=== PATIENT | male | born 1955 | race Caucasian/White ===

== ENCOUNTER 2025-07-09 15:24 | Emergency (ER) | payer MEDICARE ==
[~2025-07-09] VITALS: Ht 190.5 cm; Wt 81.6 kg
[2025-07-09 15:27] VITALS: BP 151/77; PULSE 80; RESP 15; TEMP 98.3
--- NOTE | 2025-07-09 15:38 | ERN ---
ED Note History of Present Illness Stated Complaint: HEMATEMESIS Chief Complaint: Hematemesis/Vomiting Blood Time Seen by MD: 15:28 Dictation: PATIENT IS A 70-YEAR-OLD MALE COMPLAINING OF HAVING VOMITING BLOOD ONSET 30 MINUTES PRIOR TO ARRIVAL. HE STATES HE HAD A RECENT EGD BY [facility] IN [facility] TWO WEEKS AGO AND WAS PLACED ON CARAFATE AND SOME OTHER MEDICATIONS WITH A HIATAL HERNIA AND GASTRITIS. HE IS HAVING NO PAIN AT THE PRESENT TIME. Allergies: Coded Allergies: No Known Drug Allergies (Unverified Allergy, Unknown, 07/09/25) Past Medical History Past Medical History: Heart Disease, Hypertension Additional Past Medical Hx: LEUKEMIA Surgical History: Other Surgical History Other: ENDOSCOPY, HEART STENT, LOOP RECORDER, RT KIDNEY SX RN Note Reviewed/Agreed w/PFSH: Yes Review of System Dictation CONSTITUTIONAL: NEGATIVE EXCEPT FOR HPI HEAD/FACE: NEGATIVE EXCEPT FOR HPI EENT: NEGATIVE EXCEPT FOR HPI RESPIRATORY: NEGATIVE EXCEPT FOR HPI GASTROINTESTINAL/ABDOMINAL: NEGATIVE EXCEPT FOR HPI HEMATEMESIS GENITOURINARY: NEGATIVE EXCEPT FOR HPI MUSCULOSKELETAL: NEGATIVE EXCEPT FOR HPI INTEGUMENTARY: NEGATIVE EXCEPT FOR HPI NEUROLOGICAL/PSYCH: NEGATIVE EXCEPT FOR HPI HEMATOLOGIC/LYMPHATIC: NEGATIVE EXCEPT FOR HPI ALL SYSTEMS NEGATIVE, EXCEPT NOTED ABOVE. 13 POINT REVIEW OF SYSTEMS ASSESSED AND ALL NEGATIVE EXCEPT FOR ABOVE. Initial Vital Sign VS Vital Signs Date Time Temp Pulse Resp B/P (MAP) Pulse Ox O2 Delivery O2 Flow Rate FiO2 07/09/25 15:27 98.2 80 15 151/77 97 Room Air 0 Physical Exam Dictation VITAL SIGNS REVIEWED GENERAL APPEARANCE: ALERT, ORIENTED X 3, NO ACUTE DISTRESS, WELL DEVELOPED, NOURISHED. HEAD AND FACE: NON-TRAUMATIC. EYES: PERRL, PINK CONJUNCTIVAS, EYELID NO TRAUMA, ANTERIOR CHAMBER WITH ARCUS SENILIS. EARS: PINNAS INTACT AND NO SIGNS OF TRAUMA OR ERYTHEMA EAR CANALS CLEAR AND NO DISCHARGE TM NO ERYTHEMA NOSE: NO DISCHARGE, NO BLEEDING. OROPHARYNX: MOUTH NORMAL, TONGUE PINK, PHARYNX CLEAR,NO ERYTHEMA, TONSILS NO EXUDATES, NO ABSCESSES NOTED, MUCOUS MEMBRANE MOIST NECK: SUPPLE, NON-TENDER, NO THYROMEGALY, NO MASSES, NO JVD, NO BRUITS BREAST:DEFERRED CHEST:NO TENDERNESS, NO CREPITUS, NO PARADOXICAL MOVEMENT, NO RETRACTIONS LUNGS:CLEAR, WELL-VENTILATED, SYMMETRIC, NO RALES, NO WHEEZING, NO RHONCHI, NO STRIDOR, GOOD BREATH SOUNDS BILATERALLY HEART: REGULAR RATE, REGULAR RHYTHM, NO MURMUR, NO GALLOPS VASCULAR: NO PERIPHERAL EDEMA, ABDOMEN: SOFT, POSITIVE BOWEL SOUNDS, NONDISTENDED, NO GUARDING, NONTENDER, NO REBOUND, NO MASSES NO HEPATOMEGALY, NO SPLENOMEGALY, NO ACUÑA'S SIGN, NO HERNIAS. RECTAL: DEFERRED GENITAL: DEFERRED NEUROLOGICAL: NORMAL SPEECH, MOTOR FUNCTION INTACT, SENSORY FUNCTION INTACT MUSCULOSKELETAL: NECK NONTENDER, FULL RANGE OF MOTION, BACK NONTENDER, FULL RANGE OF MOTION, EXTREMITIES: NONTENDER, FULL RANGE OF MOTION SKIN: COLOR PINK, DRY, NO TURGOR, NO RASH, NO LACERATIONS, NO ABRASIONS, NO CONTUSIONS. LYMPHATIC: DEFERRED Results (Laboratory/Radiology) Laboratory/Radiology Laboratory Tests Test 07/09/25 15:52 07/09/25 16:04 07/09/25 16:10 White Blood Count 79.8 K/uL (4.8-10.8) *H Red Blood Count 3.82 MIL/uL (4.50-6.20) L Hemoglobin 11.4 g/dL (14.0-18.0) L Hematocrit 37.0 % (42-54) L Mean Corpuscular Volume 96.9 fL (79-99) Mean Corpuscular Hemoglobin 29.8 pg (27.0-33.0) Mean Corpuscular Hemoglobin Concent 30.8 g/dL (32.0-36.0) L Red Cell Distribution Width 13.8 % (11.0-15.5) Platelet Count 209 K/uL (130-400) Mean Platelet Volume 10.3 fL (7.5-10.5) Immature Granulocyte % (Auto) 0.1 % (0-1) Neutrophils (%) (Auto) 3.4 % (40.0-77.0) L Lymphocytes (%) (Auto) 95.7 % (21.0-51.0) H Monocytes (%) (Auto) 0.5 % (3.0-13.0) L Eosinophils (%) (Auto) 0.3 % (0.0-8.0) Basophils (%) (Auto) 0.0 % (0.0-5.0) Neutrophils # (Auto) 2.7 K/uL (1.8-7.7) Lymphocytes # (Auto) 76.4 K/uL (1.0-4.8) H Monocytes # (Auto) 0.4 K/uL (0.1-1.0) Eosinophils # (Auto) 0.20 K/uL (0.00-0.70) Basophils # (Auto) 0.03 K/uL (0.00-0.20) Absolute Immature Granulocyte (auto 0.07 K/uL (0-1) Nucleated Red Blood Cells 0.0 % (0.0-0.19) Prothrombin Time 10.5 SEC (9.6-11.6) Prothromb Time International Ratio 0.99 (0.85-1.15) Activated Partial Thromboplast Time 27.6 SEC (26.3-35.5) Sodium Level 144 mmol/L (136-145) Potassium Level 3.7 mmol/L (3.5-5.1) Chloride Level 108 mmol/L (101-111) Carbon Dioxide Level 30 mmol/L (21-32) Blood Urea Nitrogen 18 mg/dL (7-18) Creatinine 1.0 mg/dL (0.5-1.3) Glomerular Filtration Rate Calc 80 mL/min (>90) Random Glucose 119 mg/dL (70-105) H Total Calcium 8.5 mg/dL (8.5-10.1) Troponin I High Sensitivity 7 ng/L (4-75) Urine Color YELLOW (YELLOW) Urine Appearance CLEAR (CLEAR) Urine pH 5.5 (5.0-8.0) Urine Specific [place] 1.028 (1.001-1.031) Urine Protein NEGATIVE mg/dL (NEGATIVE) Urine Glucose (UA) NEGATIVE mg/dL (NEGATIVE) Urine Ketones NEGATIVE mg/dL (NEGATIVE) Urine Occult Blood +- (TRACE) (NEGATIVE) H Urine Nitrate NEGATIVE (NEGATIVE) Urine Bilirubin NEGATIVE mg/dL (NEGATIVE) Urine Urobilinogen 0.2 mg/dL (0.2-1.0) Urine Leukocyte Esterase NEGATIVE Amna/uL Urine RBC 11-25 /HPF (0-1) H Urine WBC 2-5 /HPF (0-1) H Urine Bacteria RARE /HPF (None Seen) Urine Hyaline Casts 0-1 /LPF (0-1 /LPF) Stool Occult Blood NEGATIVE (NEGATIVE) Labs Reviewed?: Yes EKG: (+) NSR EKG Comment: EKG NORMAL SINUS RHYTHM/HEART RATE 75/AXIS NORMAL/NO ECTOPY ED Course ED Course Orders Procedure Category Date Status Time Pt And Ptt LAB 07/09/25 Complete 15:34 Cbc With Differential LAB 07/09/25 In Process 15:34 Troponin I High LAB 07/09/25 Complete Sensitivity 15:34 Urinalysis Profile LAB 07/09/25 Complete 15:34 Occult Blood Stool LAB 07/09/25 Complete Single Only 15:34 12 Lead Ekg Tracing- EKG 07/09/25 Logged Technical 15:34 Famotidine 20mg Vial PHA 07/09/25 Complete (Pepcid 20mg Vial) 16:00 Basic Metabolic Panel LAB 07/09/25 Complete 15:34 Octreotide Acetate PHA 07/09/25 Complete (Sandostatin) 16:30 Octreotide Acetate PHA 07/09/25 In Process (Sandostatin) 16:30 Type And Screen BBK 07/09/25 Logged 16:10 Manual Differential LAB 07/09/25 In Process 15:52 Current Medications Medications (Trade) Dose Ordered Sig/Christie Route PRN Reason Start Time Stop Time Status Last Admin Dose Admin Famotidine (Pepcid 20mg Vial) 20 mg ONCE ONCE IV 07/09/25 16:00 07/09/25 16:01 DC Octreotide Acetate 1250 mcg/ Sodium Chloride 250 ml @ 0 mls/hr PROTOCOL IV 07/09/25 16:30 08/08/25 16:29 Octreotide Acetate (SandoSTATIN) 50 mcg ONCE ONCE IV 07/09/25 16:30 07/09/25 16:31 DC Vital Signs Date Time Temp Pulse Resp B/P (MAP) Pulse Ox O2 Delivery O2 Flow Rate FiO2 07/09/25 15:27 98.2 80 15 151/77 97 Room Air 0 1610/PATIENT ACTIVELY VOMITING AT THIS TIME WITH FOUZIA HEMATEMESIS AND CLOTS. WE WILL INITIATE SANDOSTATIN DRIP WITH BOLUS. ZOFRAN WE WILL BE GIVEN FOR VOMITING., TYPE AND SCREEN WE WILL BE COLLECTED AND PATIENT WILL BE ADMITTED TO THE HOSPITAL.1644/ 1644/APPROACH PATIENT IN HIS AT BEDSIDE REGARDING IT BEING ADMITTED TO THE HOSPITAL FOR ACUTE HEMATEMESIS. SANDOSTATIN HAS NOT BEEN INITIATED. PATIENT STATES I FEEL BETTER I THINK IT IS PAST ME NOW AND I WANT TO GO HOME. I EXPLAINED TO PATIENT HE CAME IN WITH FOUZIA HEMATEMESIS AND THAT I WOULD BE ADMITTING THE HOSPITALIST HE SIGNED OUT AGAINST MEDICAL ADVICE. HE STATES HE FELT BETTER AFTER VOMITING. STATES HIS PRIMARY CARE DOCTOR IS IN [facility]. HE AND HIS AGREE THEY WOULD GO HOME IN THEY WE WILL RETURN IF I HAVE ANY NEW COMPLAINTS OR CONCERNS. PATIENT IS ALERT AND ORIENTED X4 SPEECH IS CLEAR. 1645/PATIENT ALSO STATES HE HAS CLL AND HAS A AN ONCOLOGIST AT [facility]. Medical Decision Making MDM MDM: DIFFERENTIAL DIAGNOSIS: UPPER GI BLEED/ANEMIA/ELECTROLYTE IMBALANCE PATIENT IS SIGNED OUT AGAINST MEDICAL ADVICE RATIONALE: TESTS CONSIDERED AND ORDERED SECONDARY TO SHARED DECISION MAKING INCLUDE: PREVIOUS OUTSIDE RECORDS REVIEWED: OLD ER VISITS. RISK OF COMPLICATION AND/OR MORBIDITY OR MORTALITY OF PATIENT MANAGEMENT: NONE MEDICATIONS-PER MEDICATION RECONCILIATION NEED FOR HOSPITALIZATION: PATIENT DOES NOT MEET CRITERIA FOR HOSPITALIZATION. SIGNED OUT AGAINST MEDICAL ADVICE NEED FOR EMERGENCY MAJOR/MINOR SURGERY: NO THERE ARE NO SOCIAL CONCERNS WITH THIS PATIENT. PATIENT IS SIGNED OUT AGAINST MEDICAL ADVICE PRESCRIPTION DRUG MANAGEMENT PRESCRIPTIONS WILL INCLUDE SYMPTOMATIC CARE PATIENT'S PRIOR EXTERNAL MEDICAL RECORDS FROM OTHER ER VISITS WERE REVIEWED BY ME INDICATED. PRIOR TESTING AND RESULTS FROM PREVIOUS VISITS WERE REVIEWED. PRIOR TESTS WERE TAKEN INTO ACCOUNT WITH MEDICAL DECISION MAKING AND RESOURCE UTILIZATION, INDEPENDENT HISTORIAN/HISTORIANS WERE USED TO OBTAIN COMPLETE MEDICAL HISTORY. I INDEPENDENTLY INTERPRETED THE TEST THAT WERE PERFORMED, RESULTS WERE REVIEWED BY ME AND CONSIDERED FINDINGS ON RADIOLOGY IF ORDERED. MEDICAL MANAGEMENT AND EXAMINATION INTERPRETATION DISCUSSIONS WERE HAD BY ME WITH OTHER QUALIFIED HEALTHCARE PROFESSIONALS INDICATED FOR THE PATIENT'S CARE. DX & DISP Disposition: AMA Departure Impression: Primary Impression: Hematemesis Additional Impressions: Leukocytosis, Chronic lymphocytic leukemia Condition: Stable Referrals: SELF,REFERRAL (PCP) Time of Disposition: 16:51 I have reviewed the case, and I agree with, Diagnosis and Plan LILA ZHOU BURR PICKER Jul 09, 2025 15:38
[2025-07-09 16:04] LABS: IMMATURE GRANULOCYTE ABSOLUTE 0.07 K/uL (0-1); NUCLEATED RED BLOOD CELLS 0.0 % (0.0-0.19); PLATELET COUNT (AUTO) 209 K/uL (130-400); RED BLOOD CELL COUNT(AUTO) 3.82 MIL/uL (4.50-6.20); RED CELL DISTRIBUTION WIDTH 13.8 % (11.0-15.5)
[2025-07-09 16:10] LABS: WHITE BLOOD COUNT (AUTO) 79.8 K/uL (4.8-10.8)
[2025-07-09 16:13] LABS: CREATININE 1.0 mg/dL (0.5-1.3); GLOMERULAR FILTR. RATE CALC 80.0 mL/min (>90); GLUCOSE,RANDOM 119.0 mg/dL (70-105); SODIUM SERUM 144.0 mmol/L (136-145); UREA NITROGEN, BLOOD 18.0 mg/dL (7-18)
[2025-07-09 16:15] LABS: INR 0.99 (0.85-1.15)
[2025-07-09 16:17] LABS: APPEARANCE,URINE CLEAR (CLEAR); GLUCOSE, URINE (UA) NEGATIVE (NEGATIVE); LEUKOCYTE ESTERASE ,URINE NEGATIVE Leu/uL (NEGATIVE); NITRATE,URINE NEGATIVE (NEGATIVE); OCCULT BLOOD,URINE +- (TRACE) (NEGATIVE)
[2025-07-09 16:20] LABS: ADD UA MICROSCOPIC YES
[2025-07-09 16:21] LABS: HYALINE CASTS, URINE 0-1 /LPF (0-1 /LPF)
[2025-07-09] MEDS: FAMOTIDINE 20MG VIAL IV ONE (16:37)
--- NOTE | 2025-07-09 16:54 | NUR ---
PT REFUSED MEDICATIONS PEPCID AND SANDOSTATION. PT WAS EDUCATED ON THE PURPOSE OF THE MEDICATIONS.
--- NOTE | 2025-07-09 16:55 | NUR ---
PT WAS INFORMED ON THE RISK OF LEAVING AMA BY THE PROVIDER DOYLE SHARP. PT VOICED STILL WANTING TO LEAVE. PATIENT SIGNED AMA FORM.
[2025-07-09 16:57] LABS: BLASTS, MANUAL % 53 (0-0); EOSINOPHILS % (MANUAL) 3 % (1-6); LYMPHOCYTES % (MANUAL) 37 % (22-44); REACTIVE LYMPHOCYTES 2 % (0-0); SEGMENTED NEUTROPHILS % 5 % (40-70)
[2025-07-09 16:58] LABS: MAN.DIFF COMMENT-IMPRESSION MANUAL DIFFERENTIAL
--- NOTE | 2025-07-09 17:28 | EKG ---
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
== END 2025-07-09 16:57 | disposition left against medical advice (07) ==
LOC: EDH 15:24
DX: K92.0 Hematemesis (principal); D72.829 Elevated white blood cell count, unspecified; I11.9 Hypertensive heart disease without heart failure; Z95.5 Presence of coronary angioplasty implant and graft
CPT/HCPCS: 99284; 84484; 80048; 85025; 85610; 85730; 82270; 81001; 36415; 93005; J1308; J2354 ×2; J7050